=== PATIENT | male | born 1995 | race Two or more races ===

== ENCOUNTER 2019-02-10 05:51 | Day surgery (SDC) | payer BC ==
--- NOTE | 2019-02-10 06:36 | NUR ---
RN NOTES: PT DAY SURGERY, CAME TO THE UNIT BROUGHT BY FAMILY, FOR LEFT KNEE ARTHROSCOPY WITH DR ALEX. IV STARTED ON RFA G20, PLACED ON HL. VS TAKEN AND RECORDED. 132/73 HR 72 RR 18 SPO2 96%, 97.5. CONSENT FOR PROCEDURE SECURED AND SIGNED BY PT, CHECKLIST COMPLETED. PT WILL BE FOOD OR BAGGAGE HANDLING RAMPMAN BY SURGERY TEAM IN AM.
--- NOTE | 2019-02-10 06:45 | NUR ---
RN NOTES: CXR BEING DONE, CONTACTED RT FOR STAT EKG
[2019-02-10] MEDS ORDERED: CEFAZOLIN 2 GM in IV D5W 50 ML IV ONE (07:00)
[2019-02-10] MEDS ORDERED: HYDROMORPHONE INJ 2 MG/ML DISP.SYRIN ONE (08:24)
[2019-02-10] MEDS ORDERED: MIDAZOLAM HCL 2 MG/2ML VIAL ONE (08:24)
[2019-02-10] MEDS ORDERED: BUPIVACAINE 0.5 % PF 150 MG/30 ML VIAL ONE (08:31)
[2019-02-10 11:30] VITALS: BP 140/76
--- NOTE | 2019-02-10 11:30 | NUR ---
RN MS NOTES RECEIVED PT FROM O.R. STAFF SHO RN, VIA BED, PT AWAKE, ALERT AND ORIENTED, WITH COMPLAINT OF PAIN 5/10 TO LEFT KNEE, FAMILY AT BEDSIDE, VITAL SIGNS STABLE, RECORDED, POST OP ORDERS NOTED AND CARRIED OUT, LUNCH ORDERED FROM KITCHEN.
[2019-02-10 11:45] VITALS: BP 131/85
[2019-02-10 12:00] VITALS: BP_SYST 140; BP_SYST 142; BP_DIAS 76; BP_DIAS 88
[2019-02-10 12:30] VITALS: BP 148/74
[2019-02-10] MEDS ORDERED: MORPHINE SULFATE INJ 4 MG/ML DISP.SYRIN IV PRN (13:00)
--- NOTE | 2019-02-10 14:35 | NUR ---
RN MS NOTES PT IN BED, AWAKE, ALERT AND ORIENTED, WITH SLIGHT PAIN AT THE LEFT KNEE BUT DOES NOT WANT TO HAVE PAIN MEDICATION AT THIS TIME, PER PT, HE WAS GIVEN PAIN MEDICATION PRESCRIPTION AT THE O.R., VITAL SIGNS STABLE, PT STATED THAT HE WANTS TO GO HOME, POST OP AND FOLLOW UP TEACHING PROVIDED, NO BLEEDING OR DISCHARGE NOTED TO SURGICAL SITE, DRESSING DRY AND INTACT, KNEE IMMOBILIZER ON, ASSISTED TO WHEELCHAIR, ASSISTED TO HOSPITAL LOBBY BY ANDROID PLATFORM DEVELOPER, LEFT WITH FAMILY IN STABLE CONDITION.
--- NOTE | 2019-02-17 10:21 | NUR ---
agriculture specialist 02/10/19 dilaudid 1/2 mg was waisted with Jyoti Berman Rn, med was passed down by dr David
== END 2019-02-10 18:00 | disposition home or self-care (01) ==
LOC: DS 05:51 → UNDOADMIN 05:53 → MED 05:53 → UNDODISIN 14:30 → DS 18:00
PROVIDERS: ATTEND Student in an Organized Health Care Education/Training Program
DX: S83.512A Sprain of anterior cruciate ligament of left knee, initial encounter (principal); X58.XXXA Exposure to other specified factors, initial encounter; Y93.89 Activity, other specified; Y92.89 Other specified places as the place of occurrence of the external cause; Y99.8 Other external cause status
CPT/HCPCS: 29888; 71045; 88304; 88311; A4217; A6402; J0690; J1170; J1200; J2250; J2405; J2704; J3490 ×2; L1830; G0378; J7060